=== PATIENT | male | born 1965 | race Caucasian/White ===

== ENCOUNTER 2019-05-01 21:22 | Emergency (ER) | payer OTHER ==
--- NOTE | 2019-05-01 22:20 | EDM.PDOC ---
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 He states that he wrote a calf while on foot around 18:00 to 18:30. The calf jerked him, he fell forward, and struck the right side of his face on a metal arena panel bar. There was no loss of consciousness. He presents with a depression to the right side of his face that he is concerned is due to a facial bone fracture. He also has an abrasion to his right forearm and a bruise to his right hip, but he is not concerned about those. The patient took some ibuprofen and began icing his face around 18:30 to 18:45. The patient does not have a PCP. Right Jaw Pain Score (Numeric/FACES): 2 - Related Data Allergies Allergy/AdvReac Type Severity Reaction Status Date / Time No Known Allergies Allergy Verified 05/01/19 22:06 Home Meds: Home Meds . [No Known Home Meds] 05/01/19 [History] Past Medical History HEENT History: Reports: Glaucoma - Past Surgical History HEENT Surgical History: Reports: Oral Surgery (1 wisdom tooth extracted) GI Surgical History: Reports: Appendectomy Male Surgical History: Reports: Vasectomy Musculoskeletal Surgical History: Reports: Arthroscopic Knee (left) Dermatological Surgical History: Reports: Other (See Below) (benign lesion excised off left shoulder) Social & Family History - Tobacco Use Smoking Status *Q: Never Smoker - Caffeine Use Caffeine Use: Reports: Coffee - Alcohol Use Alcohol Use History: Yes Alcohol Use Frequency: Rarely - Recreational Drug Use Recreational Drug Use: No - Living Situation & Occupation Living situation: Reports: , with Spouse, with Family (1 child) 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 ED EXAM, HEAD INJURY - Physical Exam Exam: See Below Exam Limited By: No Limitations General Appearance: Alert, WD/WN, No Apparent Distress Head: Normocephalic, Other (There is a depression with a small abrasion and mild swelling to the posterior aspect of his right zygomatic arch. The depression is tender, but the surounding area is not. No tenderness to the right mandible except by the TMJ. The patient is able to fully open his mouth without difficulty.) Eyes: Bilateral Eye: EOMI, Normal Inspection, PERRL Ears: Normal External Exam, Normal Canal, Hearing Grossly Normal, Normal TMs Nose: Normal Inspection, Normal Mucousa, No Blood. No: Nasal Tenderness Throat/Mouth: Normal Inspection, Normal Lips, Normal Teeth, Normal Gums, Normal Oropharynx, Normal Voice, No Airway Compromise Neck: Non-Tender, Full Range of Motion, Normal Alignment, Normal Inspection Respiratory: No Respiratory Distress, Lungs Clear, Normal Breath Sounds, No Accessory Muscle Use Cardiovascular: Normal Peripheral Pulses, Regular Rate, Rhythm, No Edema, No Gallop, No JVD, No Murmur, No Rub GI/Abdominal Exam: Normal Bowel Sounds, Soft, Non-Tender, No Organomegaly, No Distention, No Abnormal Bruit, No Mass (Male) Exam: Deferred Rectal (Males) Exam: Deferred Back Exam: Full Range of Motion, Normal Inspection, NT Extremities: Normal Range of Motion, No Pedal Edema, Normal Capillary Refill, Other (Abrasion noted to the right forearm) Neurologic: No Motor/Sensory Deficits, Alert, Oriented x 3 Skin: Normal Color, Warm/Dry Course - Vital Signs Last Recorded V/S: Last Vital Signs Temp 36.4 C 05/01/19 21:58 Pulse 87 05/01/19 21:58 Resp 16 05/01/19 21:58 BP 129/97 H 05/01/19 21:58 Pulse Ox 97 05/01/19 21:58 - Orders/Labs/Meds Orders: Active Orders 24 hr Category Date Time Status Maxillofacial w/o CM [Max Facial Sinus wo Cont] [CT] Exams 05/01/19 22:12 Taken Stat - Re-Assessments/Exams Free Text/Narrative Re-Assessment/Exam: 05/01/19 22:15 On examination, there is a depression to the posterior aspect of the patient's right zygomatic arch. I have ordered a CT maxillofacial without contrast to evaluate. The patient declined an offer for pain medication at this time. 05/01/19 23:27 CT maxillofacial without contrast is read by Lucero as: Comminuted angulated nondisplaced fracture of the right zygomatic arch. Please note that the entire mandible was not imaged. 05/01/19 23:29 CT results discussed with the patient and his . I will need to discuss the case with a maxillofacial surgeon. They prefer . I have pushed the CT images. 05/01/19 23:46 Case discussed with Irma at [facility] at 23:30. Case then discussed with Dr. Mc, Maxillofacial and Plastic Surgeon at , at 23:37. He recommended that the patient eat a soft diet/ avoid hard foods. [place] is OK, but he would like the patient to avoid NSAIDs. The patient should also avoid Vit E and fish oil. Antibiotics are not necessary. The patient should call his office to make an appointment to see him in a week or so. If surgery is required, it would be performed in about 2 weeks. Departure - Departure Time of Disposition: 23:53 Disposition: Home, Self-Care 01 Condition: Good Clinical Impression: Fracture of right zygomatic arch - Discharge Information *PRESCRIPTION DRUG MONITORING PROGRAM REVIEWED*: Not Applicable *COPY OF PRESCRIPTION DRUG MONITORING REPORT IN PATIENT KARI: Not Applicable Referrals: PCP,None [Primary Care Provider] - Forms: ED Department Discharge Additional Instructions: You were seen in the emergency room after falling and striking the right side of your face. Workup in the ER included a CT scan of your face without contrast. The CT scan found that you have fractured (broken) your right zygomatic arch. Your case was discussed with the Maxillofacial/plastic Surgeon Dr. José Antonio Mc. He recommended that you: 1. Eat a soft diet, avoiding hard foods. 2. Avoid NSAIDs, such as aspirin, ibuprofen (Advil, Motrin), or naproxen (Aleve) . 3. Avoid supplements including vitamin E and fish oil. 4. Call his office at [phone] to make an appointment to see him in just over a week. If surgery is required, it will be in about 2 weeks. You have been provided with a prescription for [place] via [facility]. Take 1-2 tablets of [place] up to every 6 hours, as needed for discomfort. If you take [place], do not drive or operate heavy machinery for 12 hours afterwards. [place] may cause constipation, so consider taking a stool softener. If any other problems, please do not hesitate to return to the ER. - My Orders Last 24 Hours: My Active Orders 05/01/19 22:12 Maxillofacial w/o CM [Max Facial Sinus wo Cont] [CT] Stat - Assessment/Plan Last 24 Hours: My Active Orders 05/01/19 22:12 Maxillofacial w/o CM [Max Facial Sinus wo Cont] [CT] Stat
--- NOTE | 2019-05-02 07:31 | CT ---
CT facial bones Technique: Multiple axial sections through the facial bones were obtained. Reconstructed coronal and sagittal images were reviewed. Findings: Fracture is noted within the right zygomatic arch in 3 places. Inward displacement with inward angulation is seen. This inward displacement measures roughly 6 mm. No additional facial bone fracture is seen. No acute paranasal sinus disease is seen. Mastoid sinuses are clear. Impression: 1. Inward displaced right zygomatic arch fracture as noted above. 2. No other acute findings are seen on CT study of the facial bones. Diagnostic code #3 I agree with preliminary report from [facility], finalized on 05/02/19, 12:24 AM Central Time
== END 2019-05-02 00:30 | disposition home or self-care (01) ==
LOC: JD.ED 21:22
DX: S02.40EA Zygomatic fracture, right side, initial encounter for closed fracture (principal); Z90.49 Acquired absence of other specified parts of digestive tract; W01.198A Fall on same level from slipping, tripping and stumbling with subsequent striking against other object, initial encounter
CPT/HCPCS: 70486; 70486-26; 99283; 99283-25